=== PATIENT | female | born 1975 | race Caucasian/White ===

== ENCOUNTER 2019-02-26 07:59 | Day surgery (SDC) | payer MEDICAID ==
[~2019-02-26 07:59] MED LIST: CEFAZOLIN 2 GM/50 ML (PMX) 50 ML IVPB; SOD CHLORIDE 0.9% 1,000 ML IV
[2019-02-26] MEDS ORDERED: CEFAZOLIN 2 GM/50 ML (PMX) 50 ML IVPB (08:30)
[2019-02-26] MEDS ORDERED: LIDOCAINE 2% (SDV) 5 ML INJ (09:03)
[2019-02-26] MEDS ORDERED: CEFAZOLIN 1 GM INJ (09:03)
[2019-02-26] MEDS ORDERED: MEPERIDINE 100 MG INJ (09:03)
[2019-02-26] MEDS ORDERED: PROPOFOL 20 ML (09:03)
[2019-02-26] MEDS ORDERED: METOCLOPRAMIDE 10 MG INJ (09:03)
[2019-02-26] MEDS ORDERED: ONDANSETRON 4 MG INJ (09:03)
[2019-02-26] MEDS: SOD CHLORIDE 0.9% 1,000 ML IV (09:04)
[2019-02-26] MEDS ORDERED: EPHEDrine 25 MG/5 ML SYG IV (09:30)
[2019-02-26] MEDS ORDERED: HYDROmorphONE 1 MG/5 ML IV SYRINGE IV ×3 (09:30)
[2019-02-26] MEDS ORDERED: DIPHENHYDRAMINE 50 MG INJ IV (09:30)
[2019-02-26] MEDS ORDERED: MEPERIDINE 25 MG INJ IV (09:30)
[2019-02-26] MEDS ORDERED: OXYCODONE/ACETAMINOPHEN (5/325) TAB PO ×2 (09:30)
[2019-02-26] MEDS ORDERED: FENTAnyl 50 MCG/ML VIAL IV ×3 (09:30)
[2019-02-26] MEDS ORDERED: MIDAZOLAM 1 MG/ML 2 ML INJ IV (09:30)
[2019-02-26] MEDS ORDERED: hydrALAzine 20 MG INJ IV (09:30)
[2019-02-26] MEDS ORDERED: LABETALOL HCL 20MG INJ IV (09:30)
[2019-02-26] MEDS ORDERED: METOCLOPRAMIDE 10 MG INJ IV (09:30)
[2019-02-26] MEDS ORDERED: ONDANSETRON 4 MG INJ IV (09:30)
[2019-02-26] MEDS: BUPIVACAINE 0.5% (SDV) 30 ML INJ (10:06)
[2019-02-26] MEDS ORDERED: EPHEDrine 25 MG/5 ML SYG (10:08)
== END 2019-02-26 12:05 | disposition home or self-care (01) ==
LOC: SDS 07:59
DX: D24.2 Benign neoplasm of left breast (principal); I10 Essential (primary) hypertension
CPT/HCPCS: 19120